=== PATIENT | female | born 1930 | race Caucasian/White ===

== ENCOUNTER 2017-05-24 08:13 | Inpatient (IN) | payer MEDICARE, OTHER ==
[2017-05-24 08:55] LABS: #Eosinphils 0.2 thou/uL (0.0-0.7); #Lymphocytes 1.4 thou/uL (1.20-3.40); #Monocytes 0.6 thou/uL (0.11-0.59); %Basophils 0.4 % (0.0-1.0); %Eosinophils 2.1 % (0.0-10.0); %Lymphocytes 13.3 % (21.0-51.0); %Monocytes 5.6 % (0.0-10.0); Hematocrit 32.3 % (36.0-47.0); Mean Platelet Volume 7.4 fL (7.4-10.4); Red Blood Cell (RBC) Count 3.92 mill/uL (4.20-5.40); White Blood Cell (WBC) Count 10.2 thou/uL (4.8-10.8)
[2017-05-24 09:05] LABS: ALT (SGPT) 7 U/L (8-55); AST (SGOT) 17 U/L (5-34); Alkaline Phosphatase 85 U/L (40-150); Anion Gap 18 mmol/L (10-20); BUN (Urea Nitrogen) 18 mg/dL (9.8-20.1); Bilirubin, Total 0.9 mg/dL (0.2-1.2); Calc. Creatinine Clearance 0 mL/min (70-130); Calcium 9.7 mg/dL (7.8-10.44); Carbon Dioxide 21 mmol/L (23-31); Chloride 102 mmol/L (98-107); Estimated GFR-MDRD 30; Globulin 4.9 g/dL (2.4-3.5)
[2017-05-24 09:07] LABS: Bilirubin Negative (Negative); Blood, Urine Moderate (Negative); Glucose, Urine (Dipstick) Negative (Negative); Ketone, Urine Trace mg/dL (Negative); Nitrite Negative (Negative); Protein, Urine (Dipstick) > or equal to 300 mg/dL (Neg-Trace); Urobilinogen 0.2 mg/dL (0.2-1.0)
[2017-05-24 09:10] LABS: Troponin I 0.074 ng/mL (< 0.028)
[2017-05-24 09:15] LABS: Bacteria/HPF 1+ HPF (None Seen); WBC/HPF 0-3 HPF (0-3)
--- NOTE | 2017-05-24 09:17 | RAD ---
TWO VIEW CHEST: COMPARISON: 01/16/15. CLINICAL HISTORY: Short of breath. FINDINGS: There is interstitial reticulonodular opacification of the lungs bilaterally with an enlarged cardiac silhouette. The pulmonary vasculature is prominent, centrally. Mild left pleural fluid is seen. N o pneumothorax. IMPRESSION: 1. Bilateral interstitial reticulonodular opacities. This may be on the basis of atypical pneumonia versus edema. 2. Left pleural fluid, small in volume. POS: [facility]
[2017-05-24] MEDS ORDERED: cefTRIAXone\\ROCEPHIN 2 GM VIAL ONE (09:40)
[2017-05-24] MEDS ORDERED: Azithromycin 500 MG VIAL ONE (09:43)
[2017-05-24] MEDS ORDERED: Nitroglycerin 2% Ointment 1 INCH/1 GM Packet ONE (09:43)
[2017-05-24 11:57] LABS: Troponin I 0.057 ng/mL (< 0.028)
[2017-05-24 12:59] VITALS: BMI 29.7
[2017-05-24] MEDS ORDERED: Acetaminophen 325 MG TAB PO PRN (13:46)
[2017-05-24] MEDS ORDERED: Ondansetron HCl/PF 4 MG/2 ML Vial IVP PRN (13:46)
[2017-05-24] MEDS ORDERED: Ondansetron ODT 4 MG TAB SL PRN (13:46)
[2017-05-24] MEDS ORDERED: Benzonatate 100 MG CAP PO PRN (14:36)
[2017-05-24 15:43] LABS: Lactic Acid - Sepsis 1.4 mmol/L (0.5-2.2)
[2017-05-24] MEDS ORDERED: Furosemide 40 MG/4 ML VIAL SLOW IVP SCH (15:45)
[2017-05-24] MEDS ORDERED: Spironolactone 25 MG TAB PO SCH (16:15)
[2017-05-24] MEDS: cefTRIAXone\\ROCEPHIN 1 GM, Syringe 0.4 ML in Sterile Water 9.6 ML SLOW IVP SCH (17:33)
[2017-05-24] MEDS: Piperacillin/Tazobactam 2.25 GM, Admixture Fee 1 EACH in Sodium Chloride 0.9% 100 ML IVPB SCH ×2 (17:33→23:54)
[2017-05-24] MEDS ORDERED: Nitroglycerin 2% Ointment 1 INCH/1 GM Packet TOP SCH (18:00)
--- NOTE | 2017-05-24 18:59 | ULT ---
RENAL SONOGRAM 05/24/17 HISTORY: Renal failure. FINDINGS: The right kidney is 10.3 cm in length and the left 10.7 cm. There is thinning of the cortex of each k idney. No mass or hydronephrosis are visible. Urinary bladder is incompletely distended. IMPRESSION: Diffuse renal atrophy. No evidence of urinary tract obstruction. POS: [facility]
--- NOTE | 2017-05-24 20:05 | CON ---
DATE OF CONSULTATION: 05/24/2017 REASON FOR CONSULTATION: Heart failure. PRIMARY HEAD BOOKKEEPER: Negrito Mon M.D. HISTORY OF PRESENT ILLNESS: Ms. Asencio is a very pleasant 87-year-old white female who comes to the hospital for shortness of breath. She has been having for the last 2 days cough, fever about 101 de grees quantified at home. She has been having a nonproductive cough and feels her chest is rattling. She has noted a lot of chest tightness on her chest with a cough recently. She also has noted that her shortness of breath has increased significantly in the last day. She decided to come in for [place] luation of this. She does have a history of ischemic cardiomyopathy. Her EF is actually normal in l ast evaluation in the office in January of this year, 50-55%. She does have moderate aortic stenosis an d moderate aortic insufficiency. She has a history of coronary artery bypass grafting with vein to a LAD, vein to a circumflex and a vein to a RCA. She had a last heart catheterization in 2005 at [facility] her left main and RCA were both occluded. Her graft to the LAD was patent, but LAD was diffu sely diseased all the way down distally and her circumflex graft was gone, but it fills via collatera ls and she had a patent RCA stent that had an early lesion, but was not needing any stents. This was in 2005. She has been treated medically ever since. Periodically she has episodes of chest pain th at have been treated with long-acting nitrates and sublingual nitro as well. She is also on Ranexa 5 00 mg twice a day. She currently is complaining of increased shortness of breath as well. PAST MEDICAL HISTORY: 1. Supraventricular tachycardia. An EP study that suggested that she might have an accessory pathwa y in the left side of the heart and she was recommended to have a more deep study in [place]. She nev er followed up with them. She states she has not had any anymore of this SVT since. 2. Coronary artery disease as above. 3. History of GI bleeding in the past. 4. Hypertension. 5. Hyperlipidemia. 6. Bilateral carotid endarterectomy in the past. 7. Cholecystectomy. 8. Hysterectomy. SOCIAL HISTORY: Stopped smoking about 25 years ago. Drinks socially and not recently. No drugs. OUTPATIENT MEDICATIONS: Include: 1. Aspirin 81 a day. 2. Amlodipine 10 mg a day. 3. Antivert. 4. Ambien. 5. Acetaminophen. 6. Isosorbide mononitrate 60 mg a day. 7. Ranexa 500 mg twice a day. 8. Lisinopril 20 mg twice a day. 9. Cilostazol 100 mg half an hour before breakfast and dinner. 10. Sublingual nitro p.r.n. 11. Tramadol 50 mg q.6 h. p.r.n. pain. 12. Crestor 10 mg daily. 13. Metoprolol tartrate 25 mg twice a day. ALLERGIES: 1. MEPERIDINE. 2. PRESERVATIVES. 3. SULFA DRUGS. 4. LASIX. REVIEW OF SYSTEMS: A 12-point review of systems was done and is all negative unless stated in the hi story of present illness. FAMILY HISTORY: Noncontributory at 87 years old. PHYSICAL EXAMINATION: VITAL SIGNS: Temperature 98.0, pulse 95, respiration rate 24, satting 96% on 2 liters, blood pressur e 149/73. GENERAL: Awake, alert, oriented x3 in mild to moderate respiratory distress. HEENT: Normocephalic, atraumatic. NECK: Supple. LUNGS: Have crackles at the bilateral bases with reduced breath sounds bilaterally at the bases as w ell. CARDIOVASCULAR: There is a grade 3/6 systolic ejection murmur at right upper sternal border related to the rest of the precordium. ABDOMEN: Soft, positive bowel sounds. EXTREMITIES: 2+ edema. SKIN: Warm and dry. LABORATORY WORK: Reviewed. CBC with white count of 10, hemoglobin of 10, hematocrit of 32, platelet count of 175. Chemistry with a creatinine of 1.63, base is about 1.1. Troponins are 0.07 and 0.05. BNP was 1628, albumin of 4.1. UA showed trace ketones, moderate amount of blood, trace leukocyte e sterase, 7-10 red cells, 4-6 squamous epithelial cells, and 1+ bacteria. EKG was reviewed. Chest x-ray showed pulmonary edema. ASSESSMENT AND PLAN: 1. Acute on chronic diastolic dysfunction. 2. Chronic stable angina. 3. Possible pneumonia, most likely this is pulmonary edema. 4. LASIX allergy. PLAN: 1. Dr. Randall has already evaluated her and we have spoken about her. Dr. Randall has ordered ethacrynic a miquel. The hospital is working on getting this. To her at this time, we will try to diurese her with ethacrynic acid once it comes in. Otherwise I agree with Aldactone for now as her kidney function is really not prohibitive for now. 2. If we were unable to get ethacrynic acid in a good time, she will need to get Lasix with steroids to desensitize her which is also a possibility. 3. Currently she is not a candidate for further risk stratification with a heart catheterization giv en her advanced age and her acute decompensated heart failure. We will evaluate daily; however, the family wants conservative care as much as possible. I would think this is reasonable given her advan yessenia age and her extent of coronary artery disease. Thank you for letting us to participate in the care of your patient. We will follow.
[2017-05-24] MEDS: Docusate 100 MG CAP PO SCH (20:15)
--- NOTE | 2017-05-24 21:22 | HP ---
CHIEF COMPLAINT: Shortness of breath and cough. HISTORY OF PRESENT ILLNESS: This is an 87-year-old pleasant lady who was apparently in usual state o f health. She came to the [place] ER because she had shortness of breath, cough, fever for t he last 2 days. She says that she went to [facility], had lunch with family there, and went to [facility] after t hat. Sunday, Sunday, she was feeling a little better when the coughing started and Sunday and , it became really bad and she had fever as high as 101 and she had shortness of breath. She c kavita into the hospital for evaluation of that. Of late, she has taken a flu vaccination 2 weeks back. She denies any diaphoresis or any chest pain. She complains of nonproductive cough and rattles in her chest. She had a headache and a sore throat previous to that as well. She is going to be admitt ed for further evaluation and treatment of that. PAST MEDICAL HISTORY: Significant for congestive heart failure, coronary artery disease status post CABG and stent, hyperlipidemia, hypertension, and peripheral vascular disease. PAST SURGICAL HISTORY: Significant for bilateral CEAs, cholecystectomy, hysterectomy, and CABG. SOCIAL HISTORY: Former smoker. Does not smoke, drink or do recreational drugs. She is pretty activ e for day to day life, walks with a walker. Her son lives right next door to her. MEDICATIONS: Include aspirin, vitamin D, nitroglycerin, rosuvastatin, tramadol, Ambien. Please see MAR for complete list. ALLERGIES: DEMEROL, SULFA and PNEUMOCOCCAL VACCINE. REVIEW OF SYSTEMS: Significant for fever, some chills, some headache, no eye pain, no hearing loss, no latencies. Some cough, nonproductive. No chest pain, some shortness of breath. No diarrhea, dys uria, or polyuria. No memory or mood changes. No neck pain. PHYSICAL EXAMINATION: VITAL SIGNS: Blood pressure 144/84, pulse is 87, afebrile right now breathing at 24 per minute, satt ing 96% on 2 liters. GENERAL: Patient is lying in bed resting comfortably, in mild respiratory distress. HEENT: Atraumatic and normocephalic. Pupils equally round, react to light. Extraocular movements i ntact. Mucous membranes moist. NECK: No JVD. CHEST: Bibasilar rales heard, some coarse breath sounds in the bases. Left side breath sounds are l dianna than the right. HEART: S1, S2 normal. Systolic ejection murmur heard. ABDOMEN: Soft, obese. EXTREMITIES: No cyanosis, clubbing or edema. Distal pulses are palpable. SKIN: Warm and dry. PSYCHIATRIC: Normal affect. LABORATORY DATA: EKG shows normal sinus rhythm at 90. Chest x-ray shows bilateral interstitial infi ltrates, edema versus infiltrate, left pleural effusion. UA shows 0-3 wbc's and some blood in the ur ine, also proteinuria. Troponin is 0.07. BNP is 1628.1, potassium is 3.7. Creatinine is 1.6, it wa s 1.07 in 12/2014. WBC count is 10.2, hemoglobin is 10.2. Flu shot flu exam was negative. ASSESSMENT AND PLAN: 1. Acute respiratory failure secondary to combination of factors. 2. Acute on chronic congestive heart failure. We will do echocardiogram. Since patient is allergic to SULFA, we will consult Nephrology to make recommendations on IV diuretics. We will decrease prel oad using nitropatch. We will consult the patient's conference coordinator as well. We will do echocardiogram . 3. The patient also has pneumonia, possibly community-acquired pneumonia. We will cortes culture the p atient and will treat with Zosyn. We will do DuoNebs and some Tessalon Perles to keep the patient co mfortable. 4. Acute renal failure. We will consult Nephrology and follow their recommendations. 5. Hypertension. Continue home medications and p.r.n. medications. 6. Hyperlipidemia. Continue home medications. 7. Sepsis secondary to pneumonia. We will monitor lactic acid and optimize treatment as the clinica l course evolves. 8. Sequential compression devices for deep venous thrombosis prophylaxis. I will work with the cons naomi and further caring for the patient.
--- NOTE | 2017-05-24 21:26 | CON ---
DATE OF CONSULTATION: 05/24/2017 HISTORY OF PRESENT ILLNESS: Ms. Asencio is an 87-year-old white female admitted for shortness of anshul ath. According to the daughter, the patient has been having progressive shortness of breath. It sta rted last Sunday or 4 days prior to admission, as her cough improved 1 day later. However, it occurr ed back as a shortness of breath with cough. According to the patient, she had fever with this. Of interest that T-max yesterday was 101 degrees. We are now being consulted for her acute kidney injur y/chronic renal failure. She was on x-ray found to be in congestive heart failure. Of interest, the patient cannot take loop diuretics due to a SULFA allergy. The patient has tried furosemide before, but she seems to be having an adverse reaction with it. Please note this patient was in the renal clinic about 8 years ago. At that time, she was being foll owed for her left renal artery stenosis/hypertension. Creatinine at that time was 1.05. REVIEW OF SYSTEMS: Positive for generalized malaise, positive for mild shortness of breath, positive for cough. ? of fever, no nausea, no vomiting, no diarrhea or constipation, no gross hematuria, no dysuria, no urinary frequency, no syncopal episode, no diarrhea. No abdominal pain. No hematochezia , melena. Appetite and energy level is decreased. No visual acuity changes. HOME MEDICATIONS: Aspirin 325 mg every day, Biotin 1 mg daily, Nitrostat 0.4 mg sublingual every 5 m inutes p.r.n., zolpidem 5 mg at bedtime p.r.n., vitamin D3 of 1000 international units daily, rosuvas tatin 10 mg tab every day. PAST MEDICAL HISTORY: Coronary artery disease with status post NV, peripheral vascular disease, hypertension at least 28 ye ars' duration, renal artery stenosis, hyperlipidemia, bilateral cataracts. PAST SURGICAL HISTORY: Status post CABG, status post cardiac catheterization, status post bilateral carotid endarterectomy, status post colonoscopy, status post laparoscopic cholecystectomy, status post umbilical hernia repai r, status post hysterectomy. SOCIAL HISTORY: The patient is , lives alone. She lives in [place]. Smoked for 30 yea rs, 1 pack a day, quit in 1993. Alcohol none. Education: GED. Retired clerical worker. No IV sam g abuse. Status post blood transfusion. ALLERGIES: SULFA, MEPERIDINE. TRAUMA: Status post left arm fracture. IMMUNIZATIONS: Up to date. HOSPITALIZATIONS: Please see past medical history. FAMILY HISTORY: No family history of ESRD. PHYSICAL EXAMINATION: VITAL SIGNS: Blood pressure is 155/95, heart rate 95, respiratory rate 24, pulse ox 96%, temperature 98.3. GENERAL: Noted to be awake, alert, comfortable, not in distress. SKIN: Adequate turgor. HEENT: Pinkish conjunctivae, anicteric sclerae. NECK: No neck mass, no carotid bruit, no JVD. CHEST: No deformities. LUNGS: Harsh breath sounds. HEART: Normal sinus rhythm. No murmur, no gallops or rubs. ABDOMEN: Globular, soft, nontender, no masses. EXTREMITIES: Positive for edema. No deformities. NEUROLOGIC: Awake, oriented to 3 spheres. Moving all extremities. No tremors, no asterixis, no amber jerrell. LABORATORY: 05/24/2017, white count 10.2, hemoglobin 10.2, hematocrit 32.3. Sodium 137, potassium 3 .7, chloride 102, carbon dioxide 21, BUN 18, creatinine 1.63, AST 17, ALT 7, albumin 4.1. Troponin I 0.057. On 05/24/2017, chest x-ray, bilateral interstitial reticulonodular opacities, pneumonia vers us edema, left pleural effusion. ASSESSMENT AND PLAN: 1. Shortness of breath -- consider possible congestive heart failure. The patient is not able to to lerate IV Lasix. We will consider giving her ethacrynic acid 50 mg tab b.i.d. or we will give it as IV solution. If there is no contraindication, consider starting patient on metolazone, if this will not have any allergic reaction with SULFA. Consider metolazone 5 mg tab daily. 2. Acute kidney injury -- consider hemodynamically mediated renal dysfunction. Continue current man agement. No indication for any dialytic intervention. Thank you for the consult. We will continue to follow.
[2017-05-25 04:54] LABS: #Basophils 0.1 thou/uL (0.0-0.2); #Eosinphils 0.1 thou/uL (0.0-0.7); #Lymphocytes 1.4 thou/uL (1.20-3.40); #Monocytes 0.6 thou/uL (0.11-0.59); #Neutrophils 5.4 thou/uL (1.40-6.50); %Monocytes 7.7 % (0.0-10.0); Hematocrit 28.7 % (36.0-47.0); Mean Platelet Volume 8.1 fL (7.4-10.4); Red Blood Cell (RBC) Count 3.34 mill/uL (4.20-5.40); White Blood Cell (WBC) Count 7.5 thou/uL (4.8-10.8)
[2017-05-25 04:57] LABS: Anion Gap 11 mmol/L (10-20); BUN (Urea Nitrogen) 20 mg/dL (9.8-20.1); Calc. Creatinine Clearance 33 mL/min (70-130); Calcium 8.7 mg/dL (7.8-10.44); Carbon Dioxide 23 mmol/L (23-31); Chloride 104 mmol/L (98-107); Estimated GFR-MDRD 35
[2017-05-25] MEDS: Piperacillin/Tazobactam 2.25 GM, Admixture Fee 1 EACH in Sodium Chloride 0.9% 100 ML IVPB SCH (05:30)
[2017-05-25] MEDS ORDERED: Furosemide 40 MG/4 ML VIAL SLOW IVP SCH (06:00)
--- NOTE | 2017-05-25 08:36 | RAD ---
EXAM: CHEST 2 VIEWS: HISTORY: Sepsis. COMPARISON: 05/24/17. FINDINGS: Sternotomy wires, vascular rings, and surgical clips are redemonstrated. There is atherosclerosis of the aorta. Heart is enlarged. Pulmonary vessels are within normal limits. Chronic changes of the lung parenchyma are identified. Superimposed infiltrate in the left lung base is suspected. Small l eft-sided pleural effusion. No pneumothorax. There are surgical clips in the left and right neck. IMPRESSION: 1. Interstitial infiltrate in the left lung base. 2. Small left effusion. 3. Atherosclerosis. POS: [facility]
[2017-05-25] MEDS ORDERED: Aspirin 325 MG TAB PO SCH (09:00)
[2017-05-25] MEDS: Docusate 100 MG CAP PO SCH ×2 (09:21→20:32)
[2017-05-25] MEDS: Famotidine 20 MG TAB PO SCH (09:21)
--- NOTE | 2017-05-25 11:30 | PDOC.CTH ---
Cardiology Progress Note - Subjective She diuresed with aldactone but not as [id number] as we would want as compared to loop diuretics. Her CXR did clear to some extent and possibly has a LLL pnuemponia. - Objective Vital Signs Temp Pulse Resp BP Pulse Ox 05/25/17 08:00 98.1 F 86 20 100 05/25/17 07:00 98.1 F 86 20 162/75 H 90 L 05/25/17 03:53 98.0 F 96 18 137/64 97 05/25/17 00:36 78 16 96 05/24/17 23:57 98.0 F 81 20 162/77 H 97 Weight 170 lb 4.8 oz 05/24/17 05/25/17 05/26/17 06:59 06:59 06:59 Intake Total 480 200 Output Total 850 Balance -370 200 - Physical Examination General/Neuro: alert & oriented x3 Neck: no JVD present Lungs: unlabored respirations Heart: RRR Abdomen: NT/ND Extremities: + edema B (trace) - Telemetry Telemetry Rhythm: NSR - Labs Result Diagrams: 05/25/17 04:28 05/25/17 04:28 Troponin/CKMB CK-MB (CK-2) 1.7 ng/mL (0-6.6) 05/24/17 08:40 Troponin I 0.057 ng/mL (< 0.028) H 05/24/17 11:35 - Assessment/Plan 1. Unstable angina 2. Possible LL pneumonia 3. CAD, s/p CABG in distant past. PLAN: - Continue to try to get ethacrinic acid for diuresis. - IV abx per primary team - Will increase Ranexa to 1000 mg BID. - Few options for angina. May consider comfort measures if pain is not able to be controlled but not at this time.
[2017-05-25] MEDS: Doxycycline 100 MG CAP PO SCH ×2 (11:43→20:32)
--- NOTE | 2017-05-25 12:08 | CON ---
DATE OF CONSULTATION: 05/25/2017 HISTORY: Bing Asencio is an 87-year-old female who seeks her care normally with a Radha vernon. She was brought into the ER yesterday after she had difficulty breathing, sore throat, fever without any chills or sweats. Her temperature max was 101. This went on for several days, she has extensive rattling in the chest. She is a longtime smoker, smoked a pack a day for almost 20 years, though she quit smoking many years ago. She has previous history of pneumonia, but no TB or asthma. She has severe limitation to acti vity. She can barely walk even a couple hundred feet without getting markedly short of breath. PAST MEDICAL HISTORY: 1. Otherwise, pertinent for previously noted congestive heart failure, diastolic dysfunction. 2. Hyperlipidemia. 3. Tobacco abuse. 4. Hypertension. PAST SURGICAL HISTORY: Include coronary bypass, gallbladder, hysterectomy. MEDICATIONS: From home includes aspirin, nitroglycerin, Zolpidem, Levsin, and tramadol. SOCIAL/FAMILY HISTORY: Otherwise unremarkable. REVIEW OF SYSTEMS: Otherwise, 10 point negative. PHYSICAL EXAMINATION: VITAL SIGNS: O2 sat is 100% on 2 liters, temperature is 98, pulse 86, blood pressure 160/75. CHEST: Extensive crackles bilaterally. CARDIOVASCULAR: Normal S1-S2. ABDOMEN: Soft. No masses. LABORATORY: White count 7000, H&H 8 and 28, platelet count 146. Electrolytes are normal. Creatinin e 1.4. BNP is 1628. IMPRESSION: 1. Respiratory failure probably congestive heart failure. 2. Febrile illness, probably bronchitis. I do not see any pneumonia. 3. Azotemia. 4. Elevated BNP. 5. Advanced age. 6. Former smoker. PLAN: I would discontinue IV antibiotics, nothing to suspect any pneumonia. Treatment for bronchiti s, low dose steroids for the cough. Continue diuretics. I will follow while in the [facility].
--- NOTE | 2017-05-25 12:49 | PDOC.PN ---
- Subjective Encounter Start Date: 05/25/17 Encounter Start Time: 12:47 breathing better no n/v no f/c - Objective MAR Reviewed: Yes Vital Signs & Weight: Vital Signs (12 hours) Temp Pulse Pulse Pulse Resp BP BP 05/25/17 12:33 82 16 05/25/17 11:32 98.7 F 86 20 05/25/17 09:58 88 89 154/68 H 168/81 H 05/25/17 08:00 98.1 F 86 20 05/25/17 07:00 98.1 F 86 20 05/25/17 03:53 98.0 F 96 18 BP Pulse Ox Pulse Ox Pulse Ox 05/25/17 12:33 05/25/17 11:32 157/81 H 99 05/25/17 09:58 99 98 05/25/17 08:00 100 05/25/17 07:00 162/75 H 90 L 05/25/17 03:53 137/64 97 Weight Weight 170 lb 4.8 oz I&O: 05/24/17 05/25/17 05/26/17 06:59 06:59 06:59 Intake Total 480 200 Output Total 850 Balance -370 200 Result Diagrams: 05/25/17 04:28 05/25/17 04:28 Phys Exam - Physical Examination Constitutional: NAD HEENT: PERRLA Neck: no JVD bibasilar rales, matt, coarse bs Cardiovascular: no significant murmur Gastrointestinal: non-tender Musculoskeletal: pulses present Neurological: moves all 4 limbs Psychiatric: A&O x 3 Dx/Plan (1) Acute on chronic diastolic CHF (congestive heart failure) Code(s): I50.33 - ACUTE ON CHRONIC DIASTOLIC (CONGESTIVE) HEART FAILURE Status : Acute (2) Unstable angina Status: Acute (3) CAP (community acquired pneumonia) Code(s): J18.9 - PNEUMONIA, UNSPECIFIED ORGANISM Status: Acute (4) ARF (acute renal failure) Status: Acute - Plan * increase dose of ranexa to 1000mg bid * diuresis per renal * cont abx * ef- 60%
--- NOTE | 2017-05-25 15:58 | PRG ---
DATE OF SERVICE: 05/25/2017 SERVICE: Renal Medicine. SUBJECTIVE: Ms. Asencio was seen for her chronic renal failure. She had a renal ultrasound, which s howed diffuse cortical thinning. In addition, she came in with shortness of breath. Initial chest x -ray on 05/24/2017 showed possible pulmonary edema. However, repeat chest x-ray on 05/25/2017 showed some improvement -- there is no overt CHF. There is a finding of interstitial infiltrate in the left lung base. The patient still has been started on antibiotics. An attempt to get ethacrynic acid wa s not available. Patient also is being considered for spironolactone, but currently is on hold. Her breathing is a little better. She was started also on DuoNeb. OBJECTIVE: VITAL SIGNS: Blood pressure is 107/81, heart rate 86, respiratory rate 20, temperature 98.7, pulse o x 99%. GENERAL EXAM: Noted to be awake, sitting, comfortable, obese. SKIN: Adequate turgor. HEENT: Slightly pale conjunctivae, anicteric sclerae. NECK: No neck mass, no carotid bruits, no JVD. LUNGS: Decreased breath sounds. HEART: Normal sinus rhythm. No murmur, no gallops, no rubs. ABDOMEN: Globular, soft, nontender, no masses. EXTREMITIES: No edema. MEDICATIONS: Medications of 05/25/2017 was reviewed. LABORATORY DATA: Laboratories of 05/25/2017, white count 7.5, hemoglobin 8.8, sodium 134, potassium 3.7, chloride 104, carbon dioxide 23, BUN 20, creatinine 1.41, calcium is 9.7. BNP is 1628. ASSESSMENT AND PLAN: 1. Shortness of breath, multifactorial. However, repeat chest x-ray showed no overt congestive hear t failure. Patient is currently being treated for a presumed pneumonia -- patient is currently on Vi bramycin 100 mg p.o. b.i.d. 2. Acute kidney injury/chronic renal failure -- superimposed prerenal azotemia. Currently, we have discontinued the diuretics. The patient is off of diuretics. Cardiology is following. Please note a cardiac echocardiogram on 05/24/2017 showed an EF that was re ported to be 60%-65%. Please note that the patient's renal ultrasound showed diffuse cortical thinni ng. Continue supportive care. There is no indication for any dialytic intervention.
[2017-05-25] MEDS: cefTRIAXone\\ROCEPHIN 1 GM, Syringe 0.4 ML in Sterile Water 9.6 ML SLOW IVP SCH (17:24)
[2017-05-25] MEDS: Acetaminophen 325 MG TAB PO PRN (21:44)
[2017-05-26 05:20] LABS: #Eosinphils 0.4 thou/uL (0.0-0.7); #Lymphocytes 1.9 thou/uL (1.20-3.40); #Monocytes 0.5 thou/uL (0.11-0.59); #Neutrophils 4.4 thou/uL (1.40-6.50); %Basophils 0.2 % (0.0-1.0); %Eosinophils 4.9 % (0.0-10.0); %Lymphocytes 26.7 % (21.0-51.0); %Monocytes 7.2 % (0.0-10.0); Hematocrit 29.8 % (36.0-47.0); Mean Platelet Volume 8.2 fL (7.4-10.4); Red Blood Cell (RBC) Count 3.47 mill/uL (4.20-5.40); White Blood Cell (WBC) Count 7.3 thou/uL (4.8-10.8)
[2017-05-26 05:29] LABS: Anion Gap 11 mmol/L (10-20); BUN (Urea Nitrogen) 18 mg/dL (9.8-20.1); Calc. Creatinine Clearance 35 mL/min (70-130); Calcium 8.8 mg/dL (7.8-10.44); Carbon Dioxide 27 mmol/L (23-31); Chloride 104 mmol/L (98-107); Estimated GFR-MDRD 38
[2017-05-26] MEDS: predniSONE 20 MG TAB PO SCH (07:52)
[2017-05-26] MEDS: Docusate 100 MG CAP PO SCH ×2 (07:52→20:48)
[2017-05-26] MEDS: Aspirin 81 mg Enteric Coated Tablet PO SCH (07:52)
[2017-05-26] MEDS ORDERED: Spironolactone 25 MG TAB PO SCH (08:00)
--- NOTE | 2017-05-26 08:23 | PRG ---
DATE OF SERVICE: 05/26/2017 SUBJECTIVE: Ms. Asencio said she is breathing about the same, really not any significant difference. She has no chest pain. PHYSICAL EXAMINATION: VITAL SIGNS: Her blood pressure is high 164/90, pulse 88, it is regular. LUNGS: She has bilateral rales in both lungs. CARDIAC: Normal S1 and S2. ABDOMEN: Soft, nontender. EXTREMITIES: There is only mild edema. PERTINENT LABORATORY DATA: Her creatinine is 1.3, potassium is 3.6. She is on ethacrynic acid. ASSESSMENT: 1. Congestive heart failure, systolic, chronic. Still appears to be heart failure. 2. Pneumonia. 3. Renal insufficiency/renal failure, stage 3. Estimated GFR is 38. 4. LASIX allergy. PLAN: 1. She is on ethacrynic acid. 2. We will give her a single dose of spironolactone. 3. Reduce the aspirin.
[2017-05-26] MEDS: Doxycycline 100 MG CAP PO SCH ×2 (08:58→20:48)
[2017-05-26] MEDS: Famotidine 20 MG TAB PO SCH (08:58)
--- NOTE | 2017-05-26 10:04 | PRG ---
DATE OF SERVICE: 05/26/2017 SUBJECTIVE: Ms. Asencio is an 87-year-old white female seen for her acute kidney injury/CHF and poss ible pneumonia. She is breathing better this morning. She has been started on ethacrynic acid and s pironolactone. In addition, prednisone was also initiated with this patient. Antibiotics have also been started. As previously mentioned, her breathing is improved - actually the chest fullness has been much reliev ed. PHYSICAL EXAMINATION: VITAL SIGNS: Blood pressure is 164/90, heart rate 88, respiratory rate 18, temperature 97.2, pulse o x 100%. GENERAL: Awake, alert, supine, comfortable, obese, not in distress. SKIN: Adequate turgor. HEENT: Slightly pale conjunctivae, anicteric sclerae. NECK: No neck mass, no carotid bruits, no JVD. CHEST: No deformities. LUNGS: Decreased breath sounds. Occasional wheezing. HEART: Normal sinus rhythm. No murmur, no gallops, no rubs. ABDOMEN: Globular, soft, nontender. EXTREMITIES: No edema, no deformities. MEDICATIONS: Medications of 05/26/2017 was reviewed/ LABORATORY DATA AND IMAGING: Laboratories of 05/26/2017; white count 7.3, hemoglobin 9.2, hematocrit 29.8. Sodium 138, potassium 3.6, chloride 104, carbon dioxide 27, BUN 18, creatinine 1.33, glucose is 90, calcium 8.8. Chest x-ray currently pending. ASSESSMENT AND PLAN: 1. Shortness of breath, multifactorial. Initially this was felt from congestive heart failure. Dilcia st x-ray now is suggestive of pneumonia. However, breathing has improved with diuretics. She was st arted on spironolactone 2 days ago and started ethacrynic acid yesterday. Continue current managemen t. 2. Acute kidney injury on top of her chronic renal failure, stabilizing renal function. Continue goodwin pportive care. Tolerating current diuretic regimen. There is no indication for any dialytic interve ntion. 3. Pneumonia on Vibramycin. 4. Continue supportive care.
--- NOTE | 2017-05-26 11:09 | RAD ---
CHEST 2 VIEWS: Date: 05/26/17 HISTORY: Sepsis. COMPARISON: 05/25/17. FINDINGS: Heart size is enlarged. There are postop sternotomy changes. There is slightly more prominent parench ymal change in the right base which could represent some atelectasis or possibly developing infiltrat e. There is also slight increased obscuration to the left hemidiaphragm. On the lateral view, I do no t see any definite confluent infiltrative process. IMPRESSION: 1. Cardiomegaly. 2. Slightly increased parenchymal changes in the right base, probably representing some increased at electasis. POS: [facility]
--- NOTE | 2017-05-26 16:55 | PRG ---
DATE OF SERVICE: 05/26/2017 SUBJECTIVE: This morning patient is awake, alert, and responsive. PHYSICAL EXAMINATION: VITAL SIGNS: , respirations 18, blood pressure 164/90. CHEST: With minimal crackles. CARDIAC: Normal S1and S2. No gallops. ABDOMEN: Soft. No masses. LABORATORY DATA: White count 7,000, hemoglobin and hematocrit 9 and 23, platelet count normal. IMPRESSION: 1. Congestive heart failure, I doubt significant pneumonia. 2. Renal failure. 3. Advanced age. PLAN: Continue doxycycline and low dose prednisone. We will discontinue Rocephin.
--- NOTE | 2017-05-26 17:06 | PDOC.PN ---
- Subjective Encounter Start Date: 05/26/17 Encounter Start Time: 17:05 Patient seen and examined. No new complaints. No overnight events - Objective MAR Reviewed: Yes Vital Signs & Weight: Vital Signs (12 hours) Temp Pulse Pulse Pulse Resp BP BP 05/26/17 16:24 05/26/17 15:40 98.3 F 92 20 05/26/17 13:01 91 87 182/96 H 169/83 H 05/26/17 12:25 75 14 05/26/17 11:00 97.9 F 86 18 05/26/17 08:00 97.2 F L 88 18 05/26/17 07:11 97.2 F L 88 18 05/26/17 06:51 88 14 BP Pulse Ox Pulse Ox Pulse Ox 05/26/17 16:24 170/85 H 05/26/17 15:40 176/97 H 97 05/26/17 13:01 98 99 05/26/17 12:25 05/26/17 11:00 169/83 H 97 05/26/17 08:00 05/26/17 07:11 164/90 H 100 05/26/17 06:51 Weight Weight 164 lb 11.2 oz I&O: 05/25/17 05/26/17 05/27/17 06:59 06:59 06:59 Intake Total 480 750 250 Output Total 850 3100 900 Balance -307 -4276 -808 Result Diagrams: 05/26/17 04:46 05/26/17 04:46 Phys Exam - Physical Examination Constitutional: NAD HEENT: PERRLA Neck: no JVD Respiratory: no wheezing some coarse bs Gastrointestinal: soft Musculoskeletal: pulses present Neurological: moves all 4 limbs Psychiatric: A&O x 3 Dx/Plan (1) Acute on chronic diastolic CHF (congestive heart failure) Code(s): I50.33 - ACUTE ON CHRONIC DIASTOLIC (CONGESTIVE) HEART FAILURE Status : Acute (2) Unstable angina Status: Acute (3) CAP (community acquired pneumonia) Code(s): J18.9 - PNEUMONIA, UNSPECIFIED ORGANISM Status: Acute (4) ARF (acute renal failure) Status: Acute - Plan * doing better * cardiology and renal input appreciated * cont abx * monitor labs * cont physical therapy
[2017-05-26] MEDS: Acetaminophen 325 MG TAB PO PRN (22:20)
[2017-05-27 04:47] LABS: #Lymphocytes 1.6 thou/uL (1.20-3.40); #Monocytes 0.5 thou/uL (0.11-0.59); #Neutrophils 4.6 thou/uL (1.40-6.50); %Basophils 0.3 % (0.0-1.0); %Eosinophils 0.3 % (0.0-10.0); %Lymphocytes 24.3 % (21.0-51.0); %Monocytes 7.5 % (0.0-10.0); Hematocrit 32.2 % (36.0-47.0); Mean Platelet Volume 8.1 fL (7.4-10.4); Red Blood Cell (RBC) Count 3.76 mill/uL (4.20-5.40); White Blood Cell (WBC) Count 6.8 thou/uL (4.8-10.8)
[2017-05-27 04:54] LABS: Anion Gap 14 mmol/L (10-20); BUN (Urea Nitrogen) 22 mg/dL (9.8-20.1); Calc. Creatinine Clearance 31 mL/min (70-130); Calcium 9.5 mg/dL (7.8-10.44); Carbon Dioxide 27 mmol/L (23-31); Chloride 100 mmol/L (98-107); Estimated GFR-MDRD 35; Iron 14 ug/dL (50-170)
[2017-05-27] MEDS: Aspirin 81 mg Enteric Coated Tablet PO SCH (08:23)
[2017-05-27] MEDS: predniSONE 20 MG TAB PO SCH (08:23)
[2017-05-27] MEDS: Famotidine 20 MG TAB PO SCH (08:23)
[2017-05-27] MEDS: Doxycycline 100 MG CAP PO SCH ×2 (08:23→20:30)
[2017-05-27] MEDS: Docusate 100 MG CAP PO SCH ×2 (08:23→20:30)
--- NOTE | 2017-05-27 10:50 | PRG ---
DATE OF SERVICE: 05/27/2017 SUBJECTIVE: This morning, she is much better. She says she is less short of breath, less coughing. The tightness in her chest has resolved. PHYSICAL EXAMINATION: VITAL SIGNS: Blood pressure is 159/73, sats are 96%, temperature 98, respiration 18. CHEST: No wheezing. CARDIAC: Normal S1, S2. No gallops. ABDOMEN: Soft, no masses. LABORATORY DATA: Creatinine 1.43, white count 6,000. IMPRESSION: Respiratory failure, congestive heart failure, bronchitis, renal failure. PLAN: Continue doxycycline, continue prednisone. DISPOSITION: As per Cardiology.
--- NOTE | 2017-05-27 10:54 | PRG ---
DATE OF SERVICE: 05/27/2017 SUBJECTIVE: Ms. Asencio is an 87-year-old white female being followed up by the renal service for acute kidney injury on top of her chronic renal failure. She also can be short of breath. At that time, the shortness of breath was felt to be multifactorial. The repeat chest x-ray showed an infiltrate. In addition, she also had initial CHF. She has been started on ethacrynic acid as well as on spironolactone initially. However, this has now been discontinued. PHYSICAL EXAMINATION: VITAL SIGNS: Blood pressure is 159/77, heart rate 107, respiratory rate 20, temperature 98, pulse ox 96%. GENERAL: Awake, sitting comfortable, not in distress. SKIN: Adequate turgor. HEENT: Pinkish conjunctivae. Anicteric sclerae. NECK: No neck mass, no carotid bruits, no JVD. CHEST: No deformities. LUNGS: Decreased breath sounds. No wheezing. HEART: Normal sinus rhythm. No murmur, no gallops or rubs. ABDOMEN: Globular, soft, nontender. No masses. EXTREMITIES: No edema. MEDICATIONS: 05/27/2017 reviewed. LABORATORY DATA: 05/27/2017, white count 6.8, hemoglobin 9.8. Sodium 137, potassium 3.7, chloride 100, carbon dioxide 27, BUN 22, creatinine 1.43, glucose is 102, iron 14. ASSESSMENT AND PLAN: 1. Acute kidney injury/chronic renal failure, stable. Creatinine is noted at 1.43, which is near baseline. Continue current management, on low dose ethacrynic acid at 50 mg b.i.d. We will adjust as needed. 2. Shortness of breath, multifactorial - underlying pneumonia/chf - on doxycycline and ethacrynic acid. If the renal function further worsens, we will adjust ethacrynic acid diuretic downwards. Overall, agree with current management, recheck base met and CBC in a.m. MTDD
[2017-05-27] MEDS ORDERED: cefTRIAXone\\ROCEPHIN 1 GM in Sodium Chloride 0.9% 100 ML IVPB SCH (11:30)
[2017-05-27] MEDS ORDERED: Spironolactone 25 MG TAB PO SCH (11:30)
--- NOTE | 2017-05-27 11:30 | PDOC.PN ---
- Subjective Encounter Start Date: 05/27/17 Encounter Start Time: 11:28 Patient seen and examined. No new complaints. No overnight events - Objective MAR Reviewed: Yes Vital Signs & Weight: Vital Signs (12 hours) Temp Pulse Resp BP Pulse Ox 05/27/17 08:00 98 F 107 H 20 96 05/27/17 07:15 84 14 05/27/17 07:08 98.0 F 107 H 20 159/77 H 96 05/27/17 04:00 97.6 F 105 H 16 164/92 H 97 05/27/17 01:29 96 05/27/17 00:00 98.0 F 95 16 159/85 H 97 Weight Weight 165 lb 1.6 oz I&O: 05/26/17 05/27/17 05/28/17 06:59 06:59 06:59 Intake Total 750 1250 Output Total 3100 2550 Balance -2350 -1300 Result Diagrams: 05/27/17 04:15 05/27/17 04:15 Phys Exam - Physical Examination Constitutional: NAD Neck: no JVD bibasilar rales Cardiovascular: no significant murmur Gastrointestinal: non-tender Musculoskeletal: pulses present Neurological: moves all 4 limbs Psychiatric: A&O x 3 Dx/Plan (1) Acute on chronic diastolic CHF (congestive heart failure) Code(s): I50.33 - ACUTE ON CHRONIC DIASTOLIC (CONGESTIVE) HEART FAILURE Status : Acute Comment: ef-60% (2) Unstable angina Status: Acute (3) CAP (community acquired pneumonia) Code(s): J18.9 - PNEUMONIA, UNSPECIFIED ORGANISM Status: Acute (4) ARF (acute renal failure) Status: Acute (5) UTI (urinary tract infection) Status: Acute - Plan * uti due to pseudomonas-- rocephin * doing better * cardiology and renal input appreciated * cont abx * monitor labs * cont physical therapy
[2017-05-27] MEDS ORDERED: cefTRIAXone\\ROCEPHIN 1 GM, Syringe 0.4 ML in Sterile Water 9.6 ML SLOW IVP SCH (12:00)
--- NOTE | 2017-05-27 12:32 | PRG ---
DATE OF SERVICE: 05/27/2017 SUBJECTIVE: Ms. Asencio feels a little bit better today. PHYSICAL EXAMINATION: VITAL SIGNS: Her blood pressure was high 159/77, pulse in the 70s, now sinus. LUNGS: Clear. CARDIAC: Normal S1 and S2. ABDOMEN: Soft, nontender. EXTREMITIES: There is mild edema. PERTINENT LABORATORY DATA: Hemoglobin is 9.8, creatinine 1.43. Is and Os, she was -1.3 liters yeste rday. ASSESSMENT AND PLAN: 1. Congestive heart failure, systolic, chronic, volume overloaded, but improving. 2. Pneumonia. 3. Renal insufficiency, continue with ethacrynic acid. 4. We will give her 1 more dose of spironolactone. 5. Dr. Clarke to resume care tomorrow.
[2017-05-27] MEDS: Carvedilol 3.125 MG TAB PO SCH (17:00)
[2017-05-28 05:21] LABS: #Eosinphils 0.1 thou/uL (0.0-0.7); #Lymphocytes 2.3 thou/uL (1.20-3.40); #Monocytes 0.5 thou/uL (0.11-0.59); #Neutrophils 4.7 thou/uL (1.40-6.50); %Basophils 0.1 % (0.0-1.0); %Eosinophils 0.8 % (0.0-10.0); %Lymphocytes 30.2 % (21.0-51.0); %Monocytes 6.5 % (0.0-10.0); Hematocrit 32.9 % (36.0-47.0); Mean Platelet Volume 7.6 fL (7.4-10.4); Red Blood Cell (RBC) Count 3.83 mill/uL (4.20-5.40); White Blood Cell (WBC) Count 7.6 thou/uL (4.8-10.8)
[2017-05-28 05:44] LABS: Anion Gap 13 mmol/L (10-20); BUN (Urea Nitrogen) 27 mg/dL (9.8-20.1); Calc. Creatinine Clearance 32 mL/min (70-130); Calcium 9.7 mg/dL (7.8-10.44); Carbon Dioxide 28 mmol/L (23-31); Chloride 100 mmol/L (98-107); Estimated GFR-MDRD 35
[2017-05-28] MEDS: Docusate 100 MG CAP PO SCH (08:16)
[2017-05-28] MEDS: Famotidine 20 MG TAB PO SCH (08:16)
[2017-05-28] MEDS: Carvedilol 3.125 MG TAB PO SCH (08:16)
[2017-05-28] MEDS: Aspirin 81 mg Enteric Coated Tablet PO SCH (08:16)
[2017-05-28] MEDS: Doxycycline 100 MG CAP PO SCH (08:16)
[2017-05-28] MEDS: predniSONE 20 MG TAB PO SCH (08:16)
--- NOTE | 2017-05-28 09:34 | PRG ---
DATE OF SERVICE: 05/28/2017 SUBJECTIVE: Ms. Asencio is being followed up by the Renal Service for her acute kidney injury on top of her chronic renal failure. She has also been started on diuretics which she seems to be tolerati ng. Please note she is allergic to LASIX and currently on ethacrynic acid. This morning she is feeling better. She denies any chest pain or shortness of breath. PHYSICAL EXAMINATION: VITAL SIGNS: Blood pressure is 174/85, heart rate 69, respiratory rate 18, temperature 97.6, pulse o ximetry 100%. GENERAL: Noted to be awake, alert, comfortable, not in distress. SKIN: Adequate turgor. HEENT: Pinkish conjunctivae, anicteric sclerae. NECK: No neck mass, no carotid bruits, no JVD. CHEST: No deformities. LUNGS: Decreased breath sounds. HEART: Normal sinus rhythm. No murmur, no gallops, no rubs. ABDOMEN: Globular, soft, nontender, no masses. EXTREMITIES: No edema, no deformities. MEDICATIONS: 05/28/2017 - Reviewed. LABORATORY: 05/28/2017 - White count 7.6, hemoglobin 10.1. Sodium 137, potassium 3.7, chloride 100, carbon dioxide 28, BUN 27, creatinine 1.42, GFR 35 mL per minute, glucose 85, calcium 9.7. ASSESSMENT AND PLAN: 1. Shortness of breath, multifactorial etiology. Combined pneumonia and congestive heart failure. Continue supportive care. 2. Pneumonia on Vibramycin. 3. Congestive heart failure, stable on diuretics on ethacrynic acid due to allergies to Lasix. 4. Chronic renal failure, stable. Stabilizing renal function. No indication for any dialytic inter vention. Overall, agree with current management. If the patient gets discharged she was instructed to follow up at the [facility]al Clinic.
[2017-05-28 12:31] VITALS: BP 170/80; TEMP 97.8
--- NOTE | 2017-05-28 16:38 | DIS ---
DATE OF ADMISSION: 05/24/2017 DATE OF DISCHARGE: 05/28/2017 PRIMARY CARE PHYSICIAN: Out of town. DISCHARGE DIAGNOSES: 1. Acute on chronic diastolic congestive heart failure. 2. Community-acquired pneumonia. 3. Unstable angina. 4. Acute renal failure. 5. Urinary tract infection ruled out. CONSULTATIONS: 1. Cardiology, initially Dr. Mauro Clarke on 05/24/2017. 2. Pulmonary and Critical Care, Dr. Sascha Pérez on 05/25/2017. 3. Dr. Pa Randall with Nephrology on 05/24/2017. HISTORY AND PHYSICAL: Ms. Asencio is a pleasant 87-year-old white female with a history of cerebrova scular disease, chronic systolic CHF, coronary artery disease, and hypertension who presents to the [facility] mergency Department for shortness of breath and cough. She was found to have acute respiratory failu re secondary to acute exacerbation of systolic CHF and a possible community-acquired pneumonia. The patient was admitted to our service. HOSPITAL COURSE: The patient was seen and examined and admitted by Dr. Joshua. The patient wa s placed on telemetry. Nephrology was consulted for acute kidney injury, Cardiology was consulted fo r acute on chronic systolic CHF and an echocardiogram was ordered, and patient was started on Zosyn f or community-acquired pneumonia as well as DuoNebs and Tessalon Perles. Overnight on 05/24/2017-05/25/2017, the patient improved. She was weaned off oxygen and was feeling better. She has no fevers overnight. She was increased per Cardiology to Ranexa 1000 mg b.i.d. and still on diuresis per renal. Her EF on echo showed to be 60%. She was continued on doxycycline and Zosyn. By 05/26/2017, patient continued to improve. She had no new complaints and physical therapy consult was ordered. By 05/27/2017, she was feeling much more likely herself. Urine culture grew Pseudomona s, she was continued on Rocephin for this and she is to continue physical therapy. On 05/28/2017, I took over. On review of the culture, she grew Enterococcus and Pseudomonas, neither of which was covered by her Rocephin. A repeat urinalysis was requested since she has been off the therapy effectively for 3 days. She is unable to produce enough urine for a reliable urinalysis, but she had no dysuria. Her antibiotics were tailored to treat her pneumonia and she was transitioned t o oral Levaquin. When asked about her CIPRO allergy, she states she really only allergic to SULFA an d DEMEROL. She tolerated Levaquin well, she is weaned off of oxygen, and she is otherwise stable for outpatient discharge. The patient states she had recently been on a nitroglycerin patch at some time, however, she has been unable to afford it. We looked up on good Rx to look at the [facility], and for generic 0.1-0.2 mg daily nitroglycerin patches, the cost was only around 20 dollars. She has to be placed back on that and t aken out the oral nitroglycerin and so a prescription was sent. The patient did well through the day and tolerated Levaquin and stable for discharge with outpatient followup. On physical examination, patient was seen and examined on the day of discharge. Discharge plan and d isposition was discussed with the patient face to face at the bedside. DISCHARGE MEDICATIONS: New prescriptions: 1. Benzonatate 100 mg p.o. t.i.d. p.r.n. #60 with no refills. 2. Coreg 3.125 mg p.o. b.i.d., 60 tablets with 2 refills sent. 3. Ethacrynic acid 50 mg p.o. b.i.d., 1 month supply with 1 refill sent. 4. Levofloxacin 500 mg p.o. daily, 5 tablets with no refills sent. 5. Nitroglycerin patch 0.1 mg patch changed every 24 hours, dispense one box with 30 patches with 2 refills sent. 6. Crestor 10 mg p.o. at bedtime. 7. Tramadol 50 mg p.o. daily p.r.n. 8. Ambien 5 mg p.o. at bedtime p.r.n. insomnia. 9. Nitrostat 0.4 mg sublingual every 5 minutes p.r.n. chest pain. 10. Levsin 0.125 mg p.o. q.6 hours p.r.n. abdominal spasm. 11. Cholecalciferol 1000 units p.o. daily. 12. Biotin 1 mg daily. 13. Aspirin 325 mg daily. FOLLOWUP APPOINTMENTS: 1. Primary care physician within one week. 2. Cardiology in 1-2 weeks. 3. Primary care physician, Dr. Edson Joseph. 4. Follow with Dr. Negrito Mon in 1-2 weeks. 5. [facility] to be contacted with the appointment. ACTIVITY: Per cardiopulmonary limits. DISCHARGE DIET: Heart healthy, low sodium diet. Discharge instructions from the emergency department for worsening symptoms or inability to get hold of her primary doctor and scientific technical writer.
--- NOTE | 2017-05-30 10:20 | PQF ---
MARCELLE BROWNING Gillian MEJIA HUSTON [id number] [facility]- [id number] [id number] CLINICAL DOCUMENTATION CLARIFICATION FORM: POST DISCHARGE Addendum to original discharge summary date: ____ Late entry note date: __ MARCELLE BROWNING [id number] MEJIA HUSTON YOUR INPUT IS NEEDED TO CORRECTLY CODE A DIAGNOSIS FOR YOUR PATIENT. DATE: 05/30/2017 ATTN: DR. CHANDRA Please exercise your independent, professional judgment in responding to the clarification form. Clinical indicators are provided on the bottom of this form for your review Please check appropriate box(s) to clarify if the following diagnosis has been ruled in our ruled out: SEPSIS (CDI/Coding list diagnosis here) [ ] Ruled in diagnosis [ ] Continue to treat [ ] Resolved [ ] Ruled out diagnosis [ ] Cannot rule out diagnosis [ ] Other diagnosis [ ] Unable to determine In addition, please specify: Present on Admission (POA): [ ] Yes [ ] No [ ] Unable to determine For continuity of documentation, please document condition throughout progress notes and discharge summary. Thank You. CLINICAL INDICATORS - SIGNS / SYMPTOMS / LABS ER - VITAL: BP 180/88, PULSE 91, TEMP: 98.1 H&P - SEPSIS SECONDARY TO PNEUMONIA DS - UTI RULED OUT "ANTIOBIOTICS TAILORED TO TREAT PNEUMONIA" RISK FACTORS PNEUMONIA CHF RESPIRATORY FAILURE TREATMENTS ANTIOBIOTICS (This form is maintained as a part of the permanent medical record) 2014 [employer]. All Rights Reserved Margauxpaul Mosley, KAYLEE, [facility] [email or web address] [phone] DONNIE
--- NOTE | 2017-06-30 12:09 | EKG ---
Test Reason : Blood Pressure : / mmHG Vent. Rate : 090 BPM Atrial Rate : 090 BPM P-R Int : 148 ms QRS Dur : 102 ms QT Int : 348 ms P-R-T Axes : 074 -12 051 degrees QTc Int : 425 ms Age and gender specific ECG analysis Sinus rhythm with occasional Premature ventricular complexes Moderate voltage criteria for LVH, may be normal variant Inferior infarct , age undetermined Abnormal ECG Confirmed by REMBERTO MASSEY, CORETTA ([id number]), science editor HUY TERRY ([id number]) on 06/30/2017 12:09:06 PM Referred By: REMBERTO Confirmed By:CORETTA SR MD
== END 2017-05-28 16:31 | disposition home or self-care (01) | DRG 291 ==
LOC: SCSER 08:13 → IMCU/EMU 10:15
PROVIDERS: ADMIT Internal Medicine; ATTEND Internal Medicine
DX: I13.0 Hypertensive heart and chronic kidney disease with heart failure and stage 1 through stage 4 chronic kidney disease, or unspecified chronic kidney disease (principal); J18.9 Pneumonia, unspecified organism; J96.01 Acute respiratory failure with hypoxia; N17.9 Acute kidney failure, unspecified; Z95.1 Presence of aortocoronary bypass graft; I73.9 Peripheral vascular disease, unspecified; N18.3 Chronic kidney disease, stage 3 (moderate); I25.110 Atherosclerotic heart disease of native coronary artery with unstable angina pectoris; I50.33 Acute on chronic diastolic (congestive) heart failure; E78.5 Hyperlipidemia, unspecified; Z95.5 Presence of coronary angioplasty implant and graft; Z87.891 Personal history of nicotine dependence; Z88.2 Allergy status to sulfonamides
CPT/HCPCS: 36415; 71020; 76770; 80048; 80053; 81003; 81015; 82553; 82728; 83540; 83550; 83605; 83880; 84484; 85025; 87040; 87070; 87077; 87086; 87186; 87205; 93005; 93306; 93798; 94640; 94760; 96365; 96367; A4216; J0456; J0696; J2543; J7050; J7620